=== PATIENT | male | born 1990 | race American Indian/Alaskan Native ===

== ENCOUNTER 2016-08-20 16:19 | Emergency (ER) | payer SELFPAY ==
[2016-08-20 16:33] VITALS: BP 139/44
== END 2016-08-21 04:43 | disposition left against medical advice (07) ==
LOC: ED 16:19
DX: N50.89 Other specified disorders of the male genital organs (principal); Z53.21 Procedure and treatment not carried out due to patient leaving prior to being seen by health care provider